=== PATIENT | male | born 1965 | race Caucasian/White ===

== ENCOUNTER → 2018-11-24 | Outpatient (CLI) | payer OTHER ==
--- NOTE | 2018-11-24 17:42 | PCVCIMAG ---
APPROVED REPORT Study performed: 11/24/2018 16:41:51 EXAM: Comprehensive 2D, Doppler, and color-flow Echocardiogram Patient Location: Echo lab Room #: 2Status: routine BSA: 2.15 HR: 64 bpmBP: 130/90 mmHg Rhythm: NSR Other Information Study Quality: Good Risk Factors: Cardiac Risk Factors: FHX of CAD, HTN Indications Peripheral Edema DVT 2D Dimensions IVSd: 7.11 (7-11mm)LVOT Diam: 20.84 (18-24mm) LVDd: 55.72 mm PWd: 7.10 (7-11mm)Ascending Ao: 33.00 (22-36mm) LVDs: 33.37 (25-40mm) Left Atrium: 34.36 (27-40mm) Aortic Root: 30.05 mm LV Single Plane 4CH: 53.38 % LV Single Plane 2CH: 52.01 % Biplane EF: 53.2 % Volumes Left Atrial Volume (Systole) Single Plane 4CH: 40.69 mLSingle Plane 2CH: 49.15 mL Biplane LA Volume: 45.00 mLLA ESV Index: 21.00 mL/m2 Aortic Valve AoV Peak Marcelo.: 1.06 m/s AO Peak Gr.: 4.72 mmHgLVOT Max P.93 mmHg LVOT Max V: 0.85 m/s KRISTYN Vmax: 2.72 cm2 Mitral Valve E/A Ratio: 1.4 MV Decel. Time: 139.48 ms MV E Max Marcelo.: 0.59 m/s MV A Marcelo.: 0.43 m/s IVRT: 69.20 ms TDI E/Lateral E': 7.38E/Medial E': 6.56 Medial E' Marcelo.: 0.09 m/s Lateral E' Marcelo.: 0.08 m/s Pulmonary Valve PV Peak Marcelo.: 1.07 m/sPV Peak Gr.: 4.56 mmHg Pulmonary Vein P Vein S: 0.66 m/sP Vein A: 0.41 m/s P Vein D: 0.45 m/sP Vein A Dur.: 83.0 msec P Vein S/D Ratio: 1.47 Tricuspid Valve TR Peak Marcelo.: 2.29 m/s TR Peak Gr.: 20.90 mmHg TV Vmax: 0.61 m/sPA Pressure: 28.00 mmHg Left Ventricle The left ventricle is normal size. There is normal LV segmental wall motion. There is normal left ventricular wall thickness. Left ventricular systolic function is normal. The left ventricular ejection fraction is within the normal range. LVEF is 50-55%. The left ventricular diastolic function is normal. Right Ventricle The right ventricle is normal size. The right ventricular systolic function is normal. Atria The left atrium size is normal. The right atrium size is normal. Aortic Valve Aortic valve is trileaflet. The aortic valve is normal in structure. No aortic regurgitation is present. There is no aortic valvular stenosis. Mitral Valve The mitral valve is normal in structure. Trace mitral valve regurgitation noted. No evidence of mitral valve stenosis. Tricuspid Valve The tricuspid valve is normal in structure. There is mild tricuspid valve regurgitation noted with a PA pressure of 28 mmHg. Pulmonic Valve The pulmonary valve is normal in structure. There is no pulmonic valvular regurgitation. Great Vessels The aortic root is normal in size. The ascending aorta is normal in size. Aortic arch is normal in caliber. IVC is normal in size and collapses >50% with inspiration. Pericardium There is no pericardial effusion. There is no pleural effusion. <Conclusion> The left ventricle is normal size. LVEF is 50-55%. The left ventricular diastolic function is normal. The right ventricle is normal size. The left atrium size is normal. Aortic valve is trileaflet. The aortic valve is normal in structure. Trace mitral valve regurgitation noted. There is mild tricuspid valve regurgitation noted with a PA pressure of 28 mmHg. The aortic root is normal in size. There is no pericardial effusion.
--- NOTE | 2018-11-24 21:40 | PCVCIMAG ---
EXAM: VENOUS DUPLEX RIGHT LOWER EXTREMITY INDICATION: Leg pain and swelling. FINDINGS: Right leg: No thrombus in the common or main femoral veins. Moderate nonocclusive thrombus lower popliteal vein. Extensive nonocclusive thrombus also noted in the peroneal vein. IMPRESSION: Nonocclusive thrombus lower right popliteal vein and in the right peroneal vein as detailed above. Interval follow-up is suggested. No prior studies available for comparison. LOC:OFFICE
== END | disposition home or self-care (01) ==
LOC: PCVCIMAG 15:16
PROVIDERS: ATTEND Internal Medicine Cardiovascular Disease
DX: I07.1 Rheumatic tricuspid insufficiency (principal); M79.89 Other specified soft tissue disorders; I25.10 Atherosclerotic heart disease of native coronary artery without angina pectoris; I10 Essential (primary) hypertension; I82.4Z1 Acute embolism and thrombosis of unspecified deep veins of right distal lower extremity; K21.9 Gastro-esophageal reflux disease without esophagitis; E78.5 Hyperlipidemia, unspecified; Z82.49 Family history of ischemic heart disease and other diseases of the circulatory system; Z79.899 Other long term (current) drug therapy
CPT/HCPCS: 93306; 93971

== ENCOUNTER → 2019-03-09 | Outpatient (CLI) | payer OTHER ==
--- NOTE | 2019-03-09 16:16 | PCVCIMAG ---
EXAM: VENOUS DUPLEX RIGHT LOWER EXTREMITY INDICATION: Leg pain and swelling. FINDINGS: Right leg: No thrombus in the common femoral, main femoral, or popliteal veins. These veins are compressible with phasic flow. Question of chronic scarring in one of the peroneal veins without evidence of acute thrombus. IMPRESSION: No evidence of deep venous thrombosis in the right lower extremity as detailed above. Since October 2018 thrombus in the lower right popliteal vein, tibioperoneal vein, and right peroneal vein have resolved. LOC:[id number]
== END | disposition home or self-care (01) ==
LOC: PCVCIMAG 15:00
PROVIDERS: ATTEND Internal Medicine Cardiovascular Disease
DX: I82.401 Acute embolism and thrombosis of unspecified deep veins of right lower extremity (principal)
CPT/HCPCS: 93971